=== PATIENT | male | born 1935 | race Caucasian/White ===

== ENCOUNTER 2017-12-18 11:26 | Inpatient (IN) | payer OTHER ==
[~2017-12-18] VITALS: Ht 167.6 cm; Wt 85.6 kg
[~2017-12-18 11:26] MED LIST: Cardura PO; Dulcolax PO; Glucophage PO; LAXA BASIC PO; LISINOPRIL20 MG PO; MEDROL16 MG PO; Metamucil Packet PO; VICODEN PO
[2017-12-18 12:14] LABS: HEMATOCRIT 33.5 % (38.0-50.0); HEMOGLOBIN 11.3 G/DL (12.5-16.6); MCH 31.7 PG (29.0-34.0); MCHC 33.7 G/DL (30.0-36.0); MCV 94.1 FL (86-99); PLATELET COUNT 94 K/uL (156-360); RBC DIS.WIDTH-CV 12.9 % (11.8-14.6); RBC DIS.WIDTH-SD 45.1 % (39-53); RED BLOOD COUNT 3.56 M/uL (4.00-5.50); WHITE BLOOD COUNT 6.2 K/uL (4.1-10.2)
[2017-12-18 12:27] LABS: CHLORIDE 104 mEq/L (99-109); POTASSIUM 2.9 mEq/L (3.7-5.4); SODIUM 139 mEq/L (136-147)
[2017-12-18 12:29] LABS: GLUCOSE 133 mg/dL (70-99)
[2017-12-18 12:32] LABS: CREATININE 1.2 mg/dL (0.6-1.3); GFR ESTIMATE (CALCULATED) > 59 mL/min/ (58.99-99999)
[2017-12-18 12:33] LABS: UREA NITROGEN (BUN) 18 mg/dL (9-23)
[2017-12-18 12:36] LABS: TROP-I INTERPRETATION NEGATIVE; TROPONIN-I 0.07 ng/mL (0.0-0.30)
[2017-12-18] MEDS ORDERED: ASPIR-LOW81 MG PO (14:12)
[2017-12-18] MEDS ORDERED: NORVASC10 MG PO (14:13)
[2017-12-18] MEDS ORDERED: CREON 61 CAPSULE PO (14:13)
[2017-12-18 14:29] LABS: APPEARANCE CLEAR ((CLEAR)); BILIRUBIN NEGATIVE; BLOOD MODERATE; COLOR YELLOW ((YELLOW)); GLUCOSE (STRIP) NEGATIVE; KETONES NEGATIVE; LEUKOCYTES NEGATIVE; NITRITE NEGATIVE; PROTEIN (STRIP) 30; SPECIFIC GRAVITY 1.011 (1.000-1.030); UROBILINOGEN 0.2 MG/DL (0.2-1.0)
[2017-12-18 14:33] LABS: BACTERIA NONE SEEN /HPF; CALCIUM OXALATE CRYSTALS 3+ /HPF; EPITHELIAL CELLS RARE /HPF; HYALINE CASTS 0-5 /LPF; MUCUS TRACE /LPF; RED BLOOD CELLS 0-5 /HPF (0-5); WHITE BLOOD CELLS 0-5 /HPF (0-5)
[2017-12-18 19:53] LABS: TROP-I INTERPRETATION NEGATIVE; TROPONIN-I 0.08 ng/mL (0.0-0.30)
[2017-12-19 00:25] VITALS: BP 163/87
[2017-12-19 01:09] LABS: TROP-I INTERPRETATION NEGATIVE; TROPONIN-I 0.04 ng/mL (0.0-0.30)
[2017-12-19 04:20] VITALS: BP 164/89
[2017-12-19 06:45] LABS: HEMATOCRIT 35.7 % (38.0-50.0); HEMOGLOBIN 11.7 G/DL (12.5-16.6); MCH 30.9 PG (29.0-34.0); MCHC 32.8 G/DL (30.0-36.0); MCV 94.2 FL (86-99); PLATELET COUNT 98 K/uL (156-360); RBC DIS.WIDTH-CV 13.1 % (11.8-14.6); RED BLOOD COUNT 3.79 M/uL (4.00-5.50); WHITE BLOOD COUNT 5.9 K/uL (4.1-10.2)
[2017-12-19 07:13] LABS: CHLORIDE 103 MEQ/L (99-109); CREATININE 1.1 MG/DL (0.6-1.3); GFR ESTIMATE (CALCULATED) > 59 mL/min/ (58.99-99999); SODIUM 141 MEQ/L (136-147); UREA NITROGEN (BUN) 21 mg/dL (9-23)
[2017-12-19 07:30] LABS: GLUCOSE 239 mg/dL (70-99); POTASSIUM 3.6 MEQ/L (3.7-5.4)
[2017-12-19 07:50] VITALS: BP 172/90
[2017-12-19 12:01] VITALS: BP 157/75
[2017-12-19 16:23] VITALS: BP 135/76
[2017-12-19 20:40] VITALS: BP 161/82
[2017-12-20] VITALS: BP 169/84
[2017-12-20 07:08] LABS: CHLORIDE 101 MEQ/L (99-109); CREATININE 1.2 MG/DL (0.6-1.3); GFR ESTIMATE (CALCULATED) > 59 mL/min/ (58.99-99999); GLUCOSE 183 mg/dL (70-99); POTASSIUM 3.7 MEQ/L (3.7-5.4); SODIUM 139 MEQ/L (136-147); UREA NITROGEN (BUN) 29 mg/dL (9-23)
[2017-12-20 07:32] VITALS: BP 173/97
[2017-12-20] MEDS ORDERED: LISINOPRIL40 MG PO (13:27)
[2017-12-20] MEDS ORDERED: K-DUR20 MEQ PO (13:27)
[2017-12-20] MEDS ORDERED: HYDROCHLOROTHIA25 MG PO (13:27)
[2017-12-20] MEDS ORDERED: ELIQUIS5 MG PO (14:55)
[2017-12-20] MEDS ORDERED: OSELTAMIVIR PHO30 MG PO (14:56)
[2017-12-20] MEDS ORDERED: CEFTIN250 MG PO (14:56)
== END 2017-12-20 16:02 | disposition home health service (06) | DRG 189 ==
LOC: EME 11:26 → EDOF 13:12 → 5SOUTH 13:12 → ENRESERV 13:20 → EDOF 19:23 → ENRESERV 20:29 → 5SOUTH 21:30
PROVIDERS: Internal Medicine; Internal Medicine Cardiovascular Disease; Nurse Practitioner Family
DX: J96.00 Acute respiratory failure, unspecified whether with hypoxia or hypercapnia (principal); I50.31 Acute diastolic (congestive) heart failure; J44.1 Chronic obstructive pulmonary disease with (acute) exacerbation; J10.1 Influenza due to other identified influenza virus with other respiratory manifestations; I11.0 Hypertensive heart disease with heart failure; I27.20 Pulmonary hypertension, unspecified; C25.9 Malignant neoplasm of pancreas, unspecified; E78.5 Hyperlipidemia, unspecified; Z87.891 Personal history of nicotine dependence; E87.6 Hypokalemia; E66.3 Overweight; I48.91 Unspecified atrial fibrillation; I08.0 Rheumatic disorders of both mitral and aortic valves; E11.9 Type 2 diabetes mellitus without complications; Z68.30 Body mass index [BMI] 30.0-30.9, adult
CPT/HCPCS: 71046; 80048; 81003; 83880; 84484; 85027; 87070; 87205; 87502; 93005; 93306; 93970; 94640; 94640 76; 94760; 94799; 99202; 99281; 99285; J0456; J0696; J1650; J1940; J2920; J2930